=== PATIENT | male | born 1970 | race Caucasian/White ===

== ENCOUNTER 2017-04-06 21:35 | Emergency (ER) | payer OTHER ==
[~2017-04-06] VITALS: Ht 185.4 cm; Wt 86.2 kg
[~2017-04-06 21:35] MED LIST: ALBU8.5H6 IH; CIPR250T30 PO; HYDR-971 PO; ONDA4TAB10 SL; OXYC-323 PO; SULF1TAB24 PO; TAMS0.4C97 PO; TIZA4TAB PO; TRAM50TA PO
[2017-04-06 21:52] VITALS: BP 123/82
[2017-04-06] MEDS ORDERED: TRAM50TA PO (22:11)
[2017-04-06] MEDS ORDERED: NAPR500T PO (22:11)
[2017-04-06] MEDS ORDERED: SULF1TAB24 PO (22:11)
--- NOTE | 2017-04-06 22:13 | PHYS DOC ---
Past Medical History Past Medical History: Asthma, Hypertension, Kidney Stone, Other Additional Past Medical Histor: PTSD, CHRONIC BACK PAIN, KNEE PAIN, INSOMNIA Past Surgical History: Lumbar Laminectomy, Other Additional Past Surgical Histo: RIGHT ROATOR CUFF, Back Smokin Pack Per Day Alcohol Use: Occasionally Drug Use: None Adult General Chief Complaint Chief Complaint: WOUND CHECK [facility] HPI Patient is a 46 year old male presents to the emergency department with complaints of a red swollen area on the top of the knee with streaking up to the thigh. Patient states what he thought is an insect bite has been on his knee for 3 days. He states that he was squeezing it yesterday and did get a small amount of purulent discharge. He states that today he noticed red streaks up the thigh. He reports no fever. He reports no knee pain. Review of Systems Review of Systems Constitutional: Denies fever or chills [] Eyes: Denies change in visual acuity, redness, or eye pain [] HENT: Denies nasal congestion or sore throat [] Respiratory: Denies cough or shortness of breath [] Cardiovascular: No additional information not addressed in HPI [] GI: Denies abdominal pain, nausea, vomiting, bloody stools or diarrhea [] : Denies dysuria or hematuria [] Musculoskeletal: Denies back pain or joint pain [] Integument: Red swollen area on the left knee Neurologic: Denies headache, focal weakness or sensory changes [] Endocrine: Denies polyuria or polydipsia [] Allergies Allergies Allergies Coded Allergies Type Severity Reaction Last Updated Verified Iodinated Contrast Media - Oral and Allergy Intermediate SWELLING, RASH Yes hydrocodone Allergy Intermediate Hives 06/19/16 Yes Physical Exam Physical Exam Constitutional: Well developed, well nourished, no acute distress, non-toxic appearance. [] HENT: Normocephalic, atraumatic, bilateral external ears normal, oropharynx moist, no oral exudates, nose normal. [] Eyes: PERRLA, EOMI, conjunctiva normal, no discharge. [] Neck: Normal range of motion, no tenderness, supple, no stridor. [] Cardiovascular:Heart rate regular rhythm, no murmur [] Lungs & Thorax: Bilateral breath sounds clear to auscultation [] Abdomen: Bowel sounds normal, soft, no tenderness, no masses, no pulsatile masses. [] Skin: Warm, dry, no erythema, no rash. [] Back: No tenderness, no CVA tenderness. [] Extremities: Left knee with a 3 cm area of erythema, open center with clear discharge. There is no induration or fluctuance. There is lymphangitis to the groin. Patient has full range of motion of the hip and knee without difficulty and without increase in pain. There is no swelling to the knee joint. Neurologic: Alert and oriented X 3, normal motor function, normal sensory function, no focal deficits noted. [] Psychologic: Affect normal, judgement normal, mood normal. [] Current Patient Data Vital Signs Vital Signs Date Time Temp Pulse Resp B/P (MAP) Pulse Ox O2 Delivery O2 Flow Rate FiO2 04/06/17 21:52 97.9 103 16 96 Room Air 97.9 EKG EKG [] Radiology/Procedures Radiology/Procedures [] Course & Med Decision Making Course & Med Decision Making Pertinent Labs and Imaging studies reviewed. (See chart for details) []Rocephin 1 g IM in the emergency Department. Patient was discharged on Bactrim , tramadol, Naprosyn, moist heat. He is return to the emergency department his symptoms or concerns or worsening of current condition. Smoking cessation information discussed I spoke with the patient and/or care givers. I've explained the patient's condition, diagnosis and treatment plan based on the information available to me at this time. I've answered the patient's and/or care givers questions and a dressing concerns. The patient and/or care givers have as good an understanding of the patient's diagnosis, condition and treatment plan as can be expected at this time. Vital signs stable. The patient's condition is stable and appropriate for discharge from the emergency department. The patient will pursue further outpatient evaluation with the primary care physician or other designated or consulting physician as outlined in the discharge instructions. The patient and/or care givers are agreeable to this plan of care and follow-up instructions and explained in detail. The patient and /or care givers have received these instructions in written format and have expressed an understanding of the discharge instructions. The patient and/or caregivers are aware that any significant change in condition or worsening of symptoms should prompt immediate return to this closest emergency department or call to 911. Julia Disclaimer Julia Disclaimer This electronic medical record was generated, in whole or in part, using a voice recognition dictation system. Departure Departure Impression: Primary Impression: Cellulitis of left knee Additional Impression: Lymphangitis Disposition: 01 HOME, SELF-CARE Condition: STABLE Referrals: [facility]CP [facility]P) [facility] Patient Instructions: Cellulitis Additional Instructions: Warm moist heat to affected area. Return to the emergency Department for new symptoms or concerns or worsening of current condition. Please stop smoking. He may see her primary care provider assistance with smoking cessation. Scripts Tramadol Hcl (TRAMADOL HCL) 50 Mg Tablet 50 MG PO Q6H Y for PAIN, #20 TAB 0 Refills Prov: MARVIN PFEIFFER APRN 04/06/17 Naproxen (NAPROSYN) 500 Mg Tablet 500 MG PO BID Y for PAIN, #20 TAB Prov: MARVIN PFEIFFER APRN 04/06/17 Sulfamethoxazole/Trimethoprim (BACTRIM DS TABLET) 1 Each Tablet 1 TAB PO BID, #20 TAB Prov: MARVIN PFEIFFER APRN 04/06/17 Problem Qualifiers MARVIN PFEIFFER APRN Apr 06, 2017 22:13
[2017-04-06] MEDS ORDERED: cefTRIAXone IM 1 GM VIAL IM ONE (22:30)
== END 2017-04-06 22:20 | disposition home or self-care (01) ==
LOC: ER 21:35
DX: L03.116 Cellulitis of left lower limb (principal); J45.909 Unspecified asthma, uncomplicated; I10 Essential (primary) hypertension; G89.29 Other chronic pain; F43.10 Post-traumatic stress disorder, unspecified; F17.200 Nicotine dependence, unspecified, uncomplicated; Z91.041 Radiographic dye allergy status; Z88.5 Allergy status to narcotic agent
CPT/HCPCS: 96372; 99283; J0696

== ENCOUNTER 2017-08-09 16:11 | Emergency (ER) | payer OTHER | END 2017-08-09 17:17 | disposition home or self-care (01) | LOC: ER 16:11 | DX: R42 Dizziness and giddiness (principal); J45.909 Unspecified asthma, uncomplicated; I10 Essential (primary) hypertension; G89.29 Other chronic pain; F43.10 Post-traumatic stress disorder, unspecified; Z91.041 Radiographic dye allergy status; Z88.5 Allergy status to narcotic agent | CPT/HCPCS: 99281 ==

== ENCOUNTER → 2020-04-26 | Outpatient (CLI) | payer OTHER ==
[2017-08-09 16:59] VITALS: BP 141/88
[~2020-04-26] MED LIST changes: +HYDR-3164 PO; -HYDR-971 PO; +NAPR-683 PO; -OXYC-323 PO; +OXYC1TAB15 PO; -TIZA4TAB PO; +TIZA4TAB2 PO
--- NOTE | 2020-04-26 15:57 | KCIC ---
Three-view right shoulder study Clinical indications: Chronic right shoulder pain FINDINGS: No acute fracture or dislocation or lytic process is seen. Mild degenerative osteoarthritis of the right AC joint is seen. There are cystic changes of the lateral aspect of the humeral head which may indicative of chronic impingement of the acromial humeral space resulting in rotator cuff disease. IMPRESSION: No acute osseous abnormality. Chronic impingement of the acromial humeral space which may result in rotator cuff disease. This may be further evaluated with MRI study of the right shoulder. Electronically signed by: Yobany Michaels MD (04/26/2020 3:54 PM) [id number]
--- NOTE | 2020-04-26 15:58 | KCIC ---
3 view study of the thoracic spine Clinical indications: Chronic upper back pain. FINDINGS: No compression fracture or discitis or lytic process is seen. Mild degenerative endplate spurring is seen throughout the thoracic spine. IMPRESSION: Mild degenerative thoracic spondylosis. Electronically signed by: Yobany Michaels MD (04/26/2020 3:55 PM) [id number]
== END ==
LOC: KCIC 14:24
PROVIDERS: ATTEND Family Medicine
DX: M19.011 Primary osteoarthritis, right shoulder (principal); M47.814 Spondylosis without myelopathy or radiculopathy, thoracic region; M46.04 Spinal enthesopathy, thoracic region; G89.29 Other chronic pain
CPT/HCPCS: 72072; 73030